=== PATIENT | female | born 1955 | race African-American/Black ===

== ENCOUNTER 2018-04-06 14:21 | Outpatient (CLI) | payer MEDICARE, OTHER ==
[~2018-04-06 14:21] MED LIST: ASPIRIN81 MG ORAL; DILAUDID2 MG PO; DILAUDID4 MG ORAL; MACROBID100 MG ORAL; MORPHINE SULFAT30 M2 PO; MS CONTIN100 MG ORAL; PANTOPRAZOLE SO40 MG ORAL; VALIUM2 MG ORAL
--- NOTE | 2018-04-06 15:33 | Diagnostic Imaging Report ---
Indication: Cough Technique: XRAY Chest 2v Comparison: 07/21/2011 Findings: Heart size and mediastinal contours are within normal limits and stable compared to the prior exam. There are atherosclerotic calcifications in a slightly tortuous aorta. There is a right arm PICC line which has its catheter tip in the expected region of the lower SVC. There is no focal airspace consolidation suggest pneumonia. No pleural effusion or pneumothorax. Pulmonary vascularity within normal limits. There is no acute osseous abnormality. There are surgical clips in the right upper quadrant suggesting prior cholecystectomy. There are unchanged punctate calcifications in the left upper quadrant. IMPRESSION: No focal consolidation, pleural effusion or pneumothorax. Indwelling right arm PICC line.
== END 2018-04-06 16:21 | disposition home or self-care (01) ==
LOC: RAD 14:21
DX: R05 Cough (principal); Z90.49 Acquired absence of other specified parts of digestive tract
CPT/HCPCS: 71046

== ENCOUNTER 2020-05-27 09:24 | Outpatient (CLI) | payer MEDICARE, OTHER ==
[~2020-05-27 09:24] MED LIST changes: +MORPHINE S10 MG/5 ML ORAL; +VITAMIN D PO; +ZEGERID 40 MG1 EACH ORAL
--- NOTE | 2020-05-27 09:38 | General Progress Note ---
Subjective ROS Limited/Unobtainable: Yes Allergies: Coded Allergies: AMOXICILLIN (Verified Allergy, Unknown, WHELPS, 09/25/12) PENICILLINS (Verified Allergy, Unknown, 10/24/15) Objective General Appearance: alert EENT: normal ENT inspection Neck: supple Cardiovascular: normal rate Respiratory/Chest: decreased breath sounds Abdomen: normal bowel sounds, non tender, soft Extremities: non-tender Assessment/Plan Assessment/Plan: 1. History of arthritis. 2. Anemia. 3. History of blood transfusion. 4. Chronic pain. 5. Hypertension. 6. gastritis s/p EGd and colonoscopy at [facility] still c/o pain plan EUD add Zenpep repeat colonoscopy in 5 years Roberto Reis MD May 27, 2020 09:38
== END 2020-05-27 11:24 | disposition home or self-care (01) ==
LOC: PAN 09:24
DX: K29.70 Gastritis, unspecified, without bleeding (principal); I10 Essential (primary) hypertension; G89.29 Other chronic pain; M19.90 Unspecified osteoarthritis, unspecified site; D64.9 Anemia, unspecified; Z88.0 Allergy status to penicillin

== ENCOUNTER 2020-07-08 10:43 | Outpatient (CLI) | payer MEDICARE, OTHER ==
[2020-07-08 11:21] VITALS: BP 118/63
[2020-07-08] MEDS ORDERED: DOCUSATE SODIU100 MG ORAL (11:28)
[2020-07-08] MEDS ORDERED: PANCRELIPASE 36000 UNIT ORAL (11:28)
--- NOTE | 2020-07-09 13:34 | General Progress Note ---
Subjective ROS Limited/Unobtainable: Yes Allergies: Coded Allergies: PENICILLINS (Verified Allergy, Severe, WELTS, 06/12/20) Objective General Appearance: alert EENT: normal ENT inspection Neck: supple Cardiovascular: normal rate Respiratory/Chest: lungs clear Abdomen: normal bowel sounds, non tender, soft Extremities: non-tender Assessment/Plan Assessment/Plan: Assessment/Plan Assessment/Plan: 1. History of arthritis. 2. Anemia. 3. History of blood transfusion. 4. Chronic pain. 5. Hypertension. 6. gastritis 7. multiple panc cyst 8. atrophic pancrease s/p EGD and colonoscopy at [facility] still c/o pain plan EUS Zenpep repeat colonoscopy in 5 years Roberto Reis MD Jul 09, 2020 13:34
== END 2020-07-08 12:43 | disposition home or self-care (01) ==
LOC: PAN 10:43
DX: I10 Essential (primary) hypertension (principal); G89.29 Other chronic pain; M19.90 Unspecified osteoarthritis, unspecified site; D64.9 Anemia, unspecified; K86.2 Cyst of pancreas; K86.89 Other specified diseases of pancreas; Z88.0 Allergy status to penicillin
CPT/HCPCS: 99212

== ENCOUNTER 2020-07-28 06:13 | Day surgery (SDC) | payer MEDICARE, OTHER ==
[2020-07-28] VITALS (10 sets, daily range): BP systolic 110–150; BP diastolic 75–88
[~2020-07-28] VITALS: Ht 162.6 cm; Wt 77.1 kg
[~2020-07-28 06:13] MED LIST changes: +DOCUSATE SODIU100 MG ORAL; +PANCRELIPASE 36000 UNIT ORAL; +ZESTRIL10 MG ORAL
[2020-07-28] MEDS ORDERED: Atropine Inj 1mg/10ml Syr IVP PRN (07:00)
[2020-07-28] MEDS ORDERED: DiphenhydrAMINE 50mg/ml Inj IVP PRN (07:00)
[2020-07-28] MEDS ORDERED: Midazolam 2mg/2ml Inj IVP PRN (07:00)
[2020-07-28] MEDS ORDERED: fentaNYL 100 mcg/2 mL IV PRN (07:00)
[2020-07-28] MEDS ORDERED: LR 1000ml 1,000 ML IVLG SCH ×2 (07:00→08:00)
--- NOTE | 2020-07-28 08:25 | Pre-Procedure Note/Attestation ---
Pre-Procedure Note/Attestation Complete Prior to Procedure Planned Procedure: not applicable Procedure Narrative: EUS Indications for Procedure Pre-Operative Diagnosis: pancreatic cyst Attestation I attest that I discussed the nature of the procedure; its benefits; risks and complications; and alternatives (and the risks and benefits of such alternatives), prior to the procedure, with the patient (or the patient's legal direct sales representative). I attest that, if there was a reasonable possibility of needing a blood trans fusion, the patient (or the patient's legal direct sales representative) was given the [facility] standardized written summary, pursuant to the [place] Blood Safety Act ([place] Health and Safety Code # 1645, as amended). I attest that I re-evaluated the patient just prior to the surgery and that there has been no change in the patient's H&P, except as documented below: Roberto Reis MD Jul 28, 2020 08:24
--- NOTE | 2020-07-28 08:26 | Short Stay Surgery H&P ---
History of Present Illness History of Present Illness Chief Complaint pancreatic cyst abd pain HPI Phylicia Gonzalez is a 64 year old female who was admitted on for GERD Patient History Allergies: Coded Allergies: PENICILLINS (Verified Allergy, Severe, WELTS, 06/12/20) APPLE (Verified Allergy, Intermediate, itching, 07/25/20) ORANGE JUICE (Verified Allergy, Intermediate, itching, 07/25/20) PAST MEDICAL HISTORY: (1) Abdominal pain (2) Pancreatic cyst (3) GERD (gastroesophageal reflux disease) Medication History Scheduled Docusate Sodium* (Docusate Sodium*), 100 MG ORAL DAILY, (Reported) Lisinopril* (Zestril*), 10 MG ORAL DAILY, (Reported) [Vitamin D50,000], 1 TAB PO QWEEK, (Reported) [Zenpep 36,000UNIT ], 2 CAP ORAL TID, (Reported) Scheduled PRN Morphine 10mg/5ml Oral Soln* (Morphine 10mg/5ml Oral Soln*), 60 MG ORAL PRN PRN for For Pain, (Reported) Miscellaneous Medications Omeprazole/Sodium Bicarbonate (Zegerid 40 Mg Capsule), 40 MG ORAL, (Reported) Review of Systems Cardiovascular: Reports: no symptoms Respiratory: Reports: no symptoms Skeletal: Reports: no symptoms Gastrointestinal: Reports: see HPI, gastro esophageal reflux disease Genitourinary: Reports: no symptoms Neurologic: Reports: no symptoms Endocrine: Reports: no symptoms Hematologic: Reports: no symptoms Physical Exam Vital Signs Last Vital Signs Date Time Temp Pulse Resp B/P (MAP) Pulse Ox O2 Delivery O2 Flow Rate FiO2 07/28/20 06:33 Room Air 07/28/20 06:33 97.3 70 18 110/83 98 Skin: normal HENT: normal Heart: normal Lungs: normal Abdomen: normal Extremities: normal Plan Plan of Care EUS Attestation Are the patient's medical conditions optimized for surgery? Attestation Response: yes Roberto Reis MD Jul 28, 2020 08:26
[2020-07-28] MEDS ORDERED: Lidocaine 1% MPF 10mg/ml 5ml ONE (08:30)
[2020-07-28] MEDS ORDERED: LR 1000ml ONE (08:30)
--- NOTE | 2020-07-28 08:57 | Anethesia Preoperative Eval ---
Anesthesia Pre-op PMH/ROS General Date of Evaluation: Jul 28, 2020 Time of Evaluation: 08:36 Anesthesiologist: isabel ASA Score: ASA 3 Mallampati Score Class I : Soft palate, uvula, fauces, pillars visible Class II: Soft palate, uvula, fauces visible Class III: Soft palate, base of uvula visible Class IV: Only hard plate visible Mallampati Classification: Class II Surgeon: rashi Diagnosis: gerd Surgical Procedure: egd/eus Anesthesia History: none Social History: smoking - nonsmoker Family History: no anesthesia problems Allergies: Coded Allergies: PENICILLINS (Verified Allergy, Severe, WELTS, 06/12/20) APPLE (Verified Allergy, Intermediate, itching, 07/25/20) ORANGE JUICE (Verified Allergy, Intermediate, itching, 07/25/20) Medications: see eMAR Patient NPO?: Yes Past Medical History Cardiovascular: Reports: HTN Pulmonary: Reports: asthma Gastrointestinal/Genitourinary: Reports: GERD, other Neurologic/Psychiatric: Reports: CVA, depression/anxiety, other - opiate withdrawal Hematology/Immune: Reports: anemia Musculoskeletal/Integumentary: Reports: OA PSxH Narrative: left knee surgery, right ovary removal Anesthesia Pre-op Phys. Exam Physician Exam Last Vital Signs Date Time Temp Pulse Resp B/P (MAP) Pulse Ox O2 Delivery O2 Flow Rate FiO2 07/28/20 06:33 Room Air 07/28/20 06:33 97.3 70 18 110/83 98 Constitutional: NAD Neurologic: CN 2-12 intact Cardiovascular: RRR Respiratory: CTA Gastrointestinal: S/NT/ND Airway Exam Mallampati Score: Class II MO: limited Neck: flexible TMD: 2fb ROM: limited Anesthesia Pre-op A/P Labs Microbiology Date/Time Source Procedure Growth Status 07/25/20 07:40 Nasopharynx SARS-CoV-2 RdRp Gene Assay - Final Complete Studies Pre-op Studies: EKG - nsr, incomplete rbbb,lvh,twa Risk Assessment & Plan Assessment: asa3 Plan: mac Status Change Before Surgery: No Pre-Antibiotics Drug: Carli Tran MD Jul 28, 2020 08:57
--- NOTE | 2020-07-28 09:44 | Endoscopy Procedure Note ---
Endoscopy Procedure Note General Indication for Procedure: pancreatic cyst Procedures Performed: EGD, other - EUS Operative Findings/Diagnosis: same Specimen: yes Pt Tolerated Procedure Well: Yes Estimated Blood Loss: none Anesthesia Anesthesiologist: belkys Anesthesia: MAC Inserted Devices Implant(s) used?: No GI Core Measures 50 yrs or older w/o bx or poly: Not Applicable 10yrs. F/U recommended: Not Applicable Roberto Reis MD Jul 28, 2020 09:44
[2020-07-28] MEDS ORDERED: Heparin Sod 1000 units/ml 10ml INJ SCH (10:15)
--- NOTE | 2020-07-28 10:30 | Procedure Note ---
DATE OF PROCEDURE: 07/28/2020 SURGEON: Roberto Reis MD. REFERRING PHYSICIAN: Raeann Figueroa MD. PROCEDURE: Upper endoscopy with biopsy, EUS. INDICATION: Pancreatic cyst, abdominal pain. REASON FOR PROCEDURE: The procedure, risks, benefits, and possible consequences, including hemorrhage, aspiration, perforation and infection, and alternative treatments, were explained to the patient/legal guardian by Dr. Roberto Reis and the patient/legal guardian understood and accepted these risks. PROCEDURE IN DETAIL: After informed consent was obtained and the patient was adequately sedated, Olympus upper endoscope was advanced from mouth into the second portion of the duodenum and retroflexion was performed in the stomach. The patient has mild atrophic gastritis. Random biopsy from antrum was obtained to rule out H. pylori infection. The patient also has evidence of some retained food material in the stomach. Then, at this time, the EUS radial scope was introduced. Starting scanning at GE junction, celiac axis was seen without any obvious celiac axis lymphadenopathy. The patient has mild pancreatic atrophy. The patient had a collection of the cyst in the tail of the pancreas. This seems to be arising from main pancreatic duct. The first one is 0.9 cm and second one is 0.47 cm in size. Again, they state they seems to be arising from the main pancreatic duct and possibly a side-branch IPMN. Pancreatic duct measured about 0.2 cm in the body, 0.25 in the genu, and about 0.34 at the head of the pancreas. The patient is post cholecystectomy. Common bile duct is dilated to about 1 cm in the proximal common bile duct and as we get down into the ampulla, it gets down to about 0.64 cm. No obvious stone seen in the common bile duct. No obvious pancreatic head mass. The patient tolerated the procedure very well without any complication. SUMMARY OF FINDINGS: 1. Retained recent food material in the stomach. 2. Gastritis, status post biopsy. 3. At least two cysts arising from the main pancreatic duct in the tail of the pancreas, largest one about 9 mm and second largest one was 4.7 mm, suspicious for side-branch IPMN. 4. Pancreatic atrophy. 5. Dilated common bile duct to about 1 cm. RECOMMENDATIONS: These cysts needs followup, may be another EUS or MRI in one year. In terms of dilated common bile duct, possibly the patient suffers from papillary stenosis given prior history of cholecystectomy. Recommend patient to be followed in the office. If the patient is symptomatic from this, the patient might benefit from an ERCP. I want to thank Dr. Raeann Figueroa for this kind referral. Roberto Reis M.D. DR: RIZWAN JOB#: [id number] CC: Raeann Figueroa M.D.; Fax#: [phone]
[2020-07-28] MEDS ORDERED: Heplock Flush 100 units/ml 3 ml syr INJ SCH (10:45)
--- NOTE | 2020-07-28 13:19 | Immediate Post-Op Evaluation ---
Immediate Post-Op Evalulation Immediate Post-Op Evalulation Procedure: egd/eus w/bx Date of Evaluation: Jul 28, 2020 Time of Evaluation: 09:49 IV Fluids: 750ml lr Blood Products: none Estimated Blood Loss: negligible Blood Pressure Systolic: 150 Blood Pressure Diastolic: 88 Pulse Rate: 61 Respiratory Rate: 18 O2 Sat by Pulse Oximetry: 98 Temperature (Fahrenheit): 97.5 Pain Score (1-10): 0 Nausea: No Vomiting: No Complications none Patient Status: awake, reacts, patent Hydration Status: adequate Drug: Carli Tran MD Jul 28, 2020 13:19
--- NOTE | 2020-07-28 13:20 | 48 Hour Post Anesthesia Eval ---
Post Anesthesia Evaluation Procedure: egd/eus w/bx Date of Evaluation: Jul 28, 2020 Time of Evaluation: 09:51 Blood Pressure Systolic: 138 0: 80 Pulse Rate: 56 Respiratory Rate: 18 Temperature (Fahrenheit): 97.5 O2 Sat by Pulse Oximetry: 98 Airway: patent Nausea: No Vomiting: No Pain Intensity: 0 Hydration Status: adequate Cardiopulmonary Status: stable Mental Status/LOC: patient returned to baseline Post-Anesthesia Complications: none Follow-up care needed: N/A Carli Howe MD Jul 28, 2020 13:20
== END 2020-07-28 12:20 | disposition home or self-care (01) ==
LOC: GAS 06:13
DX: K86.2 Cyst of pancreas (principal); R10.9 Unspecified abdominal pain; K21.9 Gastro-esophageal reflux disease without esophagitis; Z79.899 Other long term (current) drug therapy; I10 Essential (primary) hypertension; K29.50 Unspecified chronic gastritis without bleeding; F32.9 Major depressive disorder, single episode, unspecified; F41.9 Anxiety disorder, unspecified; M19.90 Unspecified osteoarthritis, unspecified site; I45.10 Unspecified right bundle-branch block; Z86.73 Personal history of transient ischemic attack (TIA), and cerebral infarction without residual deficits; Z88.0 Allergy status to penicillin; Z91.018 Allergy to other foods; Z90.721 Acquired absence of ovaries, unilateral
CPT/HCPCS: 43231; 43239; 93005; 94003; J1642; J2704; J7120; U0002; 94150

== ENCOUNTER 2020-08-07 14:47 | Outpatient (CLI) | payer MEDICARE, OTHER | END 2020-08-07 16:47 | disposition home or self-care (01) | LOC: PAN 14:47 | DX: R10.9 Unspecified abdominal pain (principal) | CPT/HCPCS: 99212 ==